=== PATIENT | male | born 1940 | race Caucasian/White ===

== ENCOUNTER 2017-04-11 08:23 | Outpatient (RCR) | payer MEDICARE, BC ==
[2017-02-14 08:32] VITALS: BP 120/58
[2017-02-14] MEDS: LORATADINE 10 MG TAB PO PRN (09:12)
[2017-02-14] MEDS: ACETAMINOPHEN 500 MG TAB PO PRN (09:13)
[2017-02-14] MEDS: LIDOCAINE/SOD BICARB 8.4% SYR ID PRN (11:56)
[~2017-04-11] VITALS: Ht 167.6 cm; Wt 90.5 kg
[~2017-04-11 08:23] MED LIST: AFLI2VIA IO; ALL100 PO; ASPI81TA94 PO; AZA50 PO; AZAT50TA25 PO; CAND8TAB4 PO; CHOL100058 PO; CLOP75TA PO; DABI75CA4 PO; DEXTROSE 5%(*) 100 ML BAG 100 ML IVPB PRN; DIAZ-308 PO; DILT240C4 PO; DILT360C25 PO; DOC100 PO; ESOM40CA42 PO; FEN145 PO; FENO145T PO; FERR236T3 PO; FERR324T16 PO; GABA-549 PO; HYDR-385 PO; HYDR-4309 PO; IBUP-56 PO; INF100I IV; IRON150C19 PO; LOPE2CAP39 PO; LOR5 PO; LOR5/325 PO; LOSA25TA50 PO; MESA1.2T2 PO; MESA400T PO; METO25TA23 PO; NIT100 PO; NITR0.4T3 SL; NS(*) 0.9% 100 ML BAG 100 ML IVPB PRN; OCU PO; OMEG500C5 PO; PANT40TA65 PO; PNEU0.5D3 IM; PRAV40TA78 PO; PRE10 PO; PRE20 PO; TOLT4CAP13 PO; TRAM-420 PO; WAR1 PO; [UNRECOGNIZED DRUG - CODE] IO; diphenhydrAMINE 50 MG/ML VIAL IVP PRN; inFLIXimab 100 MG VIAL 500 MG in NS(*) 0.9% 250 ML BAG 250 ML IVPB ONE
[2017-04-11 08:39] LABS: PLATELET COUNT, AUTOMATED 156 K/uL (150-450)
[2017-04-11] MEDS: LORATADINE 10 MG TAB PO PRN (08:41)
[2017-04-11] MEDS: LIDOCAINE/SOD BICARB 8.4% SYR ID PRN (08:41)
[2017-04-11] MEDS: ACETAMINOPHEN 500 MG TAB PO PRN (08:41)
[2017-04-11 08:49] VITALS: BP 155/83
[2017-04-11] MEDS ORDERED: inFLIXimab 100 MG VIAL 500 MG in NS(*) 0.9% 250 ML BAG 250 ML IVPB ONE (08:50)
[2017-04-28] MEDS ORDERED: FENO145T PO (09:54)
== END 2017-05-14 ==
LOC: SPU 08:23
PROVIDERS: ATTEND Internal Medicine Gastroenterology
DX: K51.90 Ulcerative colitis, unspecified, without complications (principal)
CPT/HCPCS: 85025; 96413; 96415; A9270; J1745; J7050; 82040; 82247; 82310; 82374; 82435; 82565; 82947; 84075; 84132; 84155; 84295; 84450; 84460; 84520

== ENCOUNTER 2017-07-31 08:23 | Outpatient (RCR) | payer MEDICARE, BC ==
[2017-06-05 08:41] VITALS: BP 146/81
[2017-06-05] MEDS: LORATADINE 10 MG TAB PO PRN (09:05)
[2017-06-05] MEDS: ACETAMINOPHEN 500 MG TAB PO PRN (09:05)
[2017-06-05] MEDS: LIDOCAINE/SOD BICARB 8.4% SYR ID PRN (09:05)
[2017-06-05 11:53] VITALS: BP 140/81
[~2017-07-31] VITALS: Ht 167.6 cm; Wt 91.4 kg
[~2017-07-31 08:23] MED LIST changes: -FENO145T PO; +FENO145T36 PO; +inFLIXimab 100 MG VIAL 300 MG in NS(*) 0.9% 250 ML BAG 250 ML IVPB ONE; -inFLIXimab 100 MG VIAL 500 MG in NS(*) 0.9% 250 ML BAG 250 ML IVPB ONE
[2017-07-31 08:42] VITALS: BP 145/88
[2017-07-31] MEDS: ACETAMINOPHEN 500 MG TAB PO PRN (09:07)
[2017-07-31] MEDS: LORATADINE 10 MG TAB PO PRN (09:07)
[2017-07-31] MEDS: LIDOCAINE/SOD BICARB 8.4% SYR ID PRN (09:08)
[2017-07-31 09:11] LABS: PLATELET COUNT, AUTOMATED 177 K/uL (150-450)
[2017-07-31] MEDS ORDERED: inFLIXimab 100 MG VIAL 500 MG in NS(*) 0.9% 250 ML BAG 250 ML IVPB ONE (09:30)
== END 2017-08-31 ==
LOC: SPU 08:23
PROVIDERS: ATTEND Internal Medicine Gastroenterology
DX: K51.90 Ulcerative colitis, unspecified, without complications (principal)
CPT/HCPCS: 85025; 96413; 96415; A9270; J1745; J7050; 82040; 82247; 82310; 82374; 82435; 82565; 82947; 84075; 84132; 84155; 84295; 84450; 84460; 84520

== ENCOUNTER 2017-11-20 08:21 | Outpatient (RCR) | payer MEDICARE, BC ==
[2017-09-25] MEDS: LIDOCAINE/SOD BICARB 8.4% SYR ID PRN (08:46)
[2017-09-25] MEDS: NS(*) 0.9% 100 ML BAG 100 ML IVPB PRN (08:47)
[2017-09-25] MEDS: ACETAMINOPHEN 500 MG TAB PO PRN (08:57)
[2017-09-25] MEDS: LORATADINE 10 MG TAB PO PRN (09:04)
[2017-09-25 09:06] VITALS: BP 145/70
[2017-09-25 12:07] VITALS: BP 154/83
[~2017-11-20 08:21] MED LIST changes: -NS(*) 0.9% 100 ML BAG 100 ML IVPB PRN; -inFLIXimab 100 MG VIAL 300 MG in NS(*) 0.9% 250 ML BAG 250 ML IVPB ONE; +inFLIXimab 100 MG VIAL 500 MG in NS(*) 0.9% 250 ML BAG 250 ML IVPB ONE
[2017-11-20 08:47] LABS: PLATELET COUNT, AUTOMATED 149 K/uL (150-450)
[2017-11-20] MEDS: ACETAMINOPHEN 500 MG TAB PO PRN (08:50)
[2017-11-20] MEDS: NS(*) 0.9% 100 ML BAG 100 ML IVPB PRN (08:51)
[2017-11-20] MEDS: LORATADINE 10 MG TAB PO PRN (08:51)
[2017-11-20] MEDS: LIDOCAINE/SOD BICARB 8.4% SYR ID PRN (08:51)
[2017-11-20 08:54] VITALS: BP 141/75
[2017-11-20] MEDS ORDERED: inFLIXimab 100 MG VIAL 500 MG in NS(*) 0.9% 250 ML BAG 250 ML IVPB ONE (09:30)
[2017-12-05] MEDS ORDERED: DABI75CA4 PO (11:36)
[2017-12-08] MEDS ORDERED: DILT240C4 PO (15:37)
[2017-12-14] MEDS ORDERED: DABI75CA4 PO (09:20)
== END 2017-12-21 ==
LOC: SPU 08:21
PROVIDERS: ATTEND Internal Medicine Gastroenterology
DX: K51.90 Ulcerative colitis, unspecified, without complications (principal)
CPT/HCPCS: 85025; 96413; 96415; A9270; J1745; J7050; 82040; 82247; 82310; 82374; 82435; 82565; 82947; 84075; 84132; 84155; 84295; 84450; 84460; 84520

== ENCOUNTER → 2017-12-15 | Outpatient (CLI) | payer MEDICARE, BC ==
[~2017-12-15] MED LIST changes: -DEXTROSE 5%(*) 100 ML BAG 100 ML IVPB PRN; -diphenhydrAMINE 50 MG/ML VIAL IVP PRN; -inFLIXimab 100 MG VIAL 500 MG in NS(*) 0.9% 250 ML BAG 250 ML IVPB ONE
== END ==
LOC: LAB 07:52
PROVIDERS: ATTEND Internal Medicine
DX: I12.9 Hypertensive chronic kidney disease with stage 1 through stage 4 chronic kidney disease, or unspecified chronic kidney disease (principal); E78.5 Hyperlipidemia, unspecified; N18.3 Chronic kidney disease, stage 3 (moderate); Z86.79 Personal history of other diseases of the circulatory system; C61 Malignant neoplasm of prostate; I48.0 Paroxysmal atrial fibrillation
CPT/HCPCS: 36415; 81001; 82040; 82247; 82306; 82310; 82374; 82435; 82465; 82565; 82947; 83718; 84075; 84132; 84153; 84155; 84295; 84443; 84450; 84460; 84478; 84520

== ENCOUNTER → 2017-12-18 | Outpatient (CLI) | payer MEDICARE, BC ==
[2017-12-18 09:36] LABS: PLATELET COUNT, AUTOMATED 168 K/uL (150-450)
== END ==
LOC: LAB 09:11
PROVIDERS: ATTEND Internal Medicine Gastroenterology
DX: K51.90 Ulcerative colitis, unspecified, without complications (principal)
CPT/HCPCS: 36415; 85025

== ENCOUNTER → 2018-01-09 | Outpatient (CLI) | payer MEDICARE, BC ==
[2018-01-09 07:53] LABS: PLATELET COUNT, AUTOMATED 147 K/uL (150-450)
== END ==
LOC: LAB 07:26
PROVIDERS: ATTEND Internal Medicine Nephrology
DX: N18.4 Chronic kidney disease, stage 4 (severe) (principal); I12.9 Hypertensive chronic kidney disease with stage 1 through stage 4 chronic kidney disease, or unspecified chronic kidney disease; E88.09 Other disorders of plasma-protein metabolism, not elsewhere classified; R60.9 Edema, unspecified
CPT/HCPCS: 36415; 82040; 82306; 82310; 82374; 82435; 82565; 82570; 82947; 83970; 84100; 84132; 84156; 84295; 84520; 85025

== ENCOUNTER → 2018-01-22 | Outpatient (CLI) | payer MEDICARE, BC ==
[~2018-01-22] MED LIST changes: -LOSA25TA50 PO; +LOSA25TA52 PO
== END ==
LOC: LAB 09:33
PROVIDERS: ATTEND Internal Medicine Nephrology
DX: R80.1 Persistent proteinuria, unspecified (principal); N18.3 Chronic kidney disease, stage 3 (moderate); I12.9 Hypertensive chronic kidney disease with stage 1 through stage 4 chronic kidney disease, or unspecified chronic kidney disease
CPT/HCPCS: 82043; 84156

== ENCOUNTER → 2018-01-31 | Outpatient (CLI) | payer MEDICARE, BC | LOC: LAB 09:05 | PROVIDERS: ATTEND Internal Medicine Nephrology | DX: N18.4 Chronic kidney disease, stage 4 (severe) (principal); I12.9 Hypertensive chronic kidney disease with stage 1 through stage 4 chronic kidney disease, or unspecified chronic kidney disease; E88.09 Other disorders of plasma-protein metabolism, not elsewhere classified; R80.9 Proteinuria, unspecified | CPT/HCPCS: 36415; 81001; 83883; 84156; 84165; 86160; 86255; 86335; 87088 ==

== ENCOUNTER → 2018-02-26 | Outpatient (CLI) | payer MEDICARE, BC ==
[~2018-02-26] MED LIST changes: -HYDR-4309 PO; +HYDR-653 PO
--- NOTE | 2018-02-27 07:14 | EKG ---
FAC[place] [facility] [place]IENT NAME: JENNIFER CUTLER : [id number] MR: [id number] V: [id number] EXAM DATE: ORDERING PHYSICIAN: IZABEL SEWELL TECHNOLOGIST: PÉREZ Wiley Reason : CAD Blood Pressure : / mmHG Vent. 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
== END ==
LOC: RESP 14:27
PROVIDERS: ATTEND Internal Medicine
DX: Z02.9 Encounter for administrative examinations, unspecified (principal)

== ENCOUNTER 2018-03-12 08:20 | Outpatient (RCR) | payer MEDICARE, BC ==
[2018-01-15 08:34] VITALS: BP 145/80
[2018-01-15] MEDS: LORATADINE 10 MG TAB PO PRN (09:00)
[2018-01-15] MEDS: ACETAMINOPHEN 500 MG TAB PO PRN (09:00)
[2018-01-15] MEDS: NS(*) 0.9% 100 ML BAG 100 ML IVPB PRN (09:01)
[2018-01-15] MEDS: LIDOCAINE/SOD BICARB 8.4% SYR ID PRN (09:01)
[~2018-03-12 08:20] MED LIST changes: +DEXTROSE 5%(*) 100 ML BAG 100 ML IVPB PRN; +inFLIXimab 100 MG VIAL 500 MG in NS(*) 0.9% 250 ML BAG 250 ML IVPB ONE
[2018-03-12 08:27] VITALS: BP 154/90
[2018-03-12] MEDS: NS(*) 0.9% 100 ML BAG 100 ML IVPB PRN (08:37)
[2018-03-12] MEDS: LIDOCAINE/SOD BICARB 8.4% SYR ID PRN (08:37)
[2018-03-12] MEDS: LORATADINE 10 MG TAB PO PRN (08:40)
[2018-03-12] MEDS: ACETAMINOPHEN 500 MG TAB PO PRN (08:40)
[2018-03-12] MEDS ORDERED: NS 0.9% IV ONE (09:30)
[2018-03-12] MEDS ORDERED: INFLIXIMAB DYYB IV ONE (09:30)
== END 2018-04-12 ==
LOC: SPU 08:20
PROVIDERS: ATTEND Internal Medicine Gastroenterology
DX: K51.90 Ulcerative colitis, unspecified, without complications (principal)
CPT/HCPCS: 96413; 96415; A9270; J1745; J7050; Q5103

== ENCOUNTER 2018-07-04 07:51 | Outpatient (RCR) | payer MEDICARE, BC ==
[2018-05-09 08:30] VITALS: BP 141/91
[2018-05-09 08:59] LABS: PLATELET COUNT, AUTOMATED 133 K/uL (150-450)
[2018-05-09] MEDS: ACETAMINOPHEN 500 MG TAB PO PRN (09:09)
[2018-05-09] MEDS: LORATADINE 10 MG TAB PO PRN (09:09)
[2018-05-09] MEDS: LIDOCAINE/SOD BICARB 8.4% SYR ID PRN (09:10)
[2018-05-09] MEDS: NS(*) 0.9% 100 ML BAG 100 ML IVPB PRN (09:10)
[2018-05-09 12:24] VITALS: BP 130/81
[~2018-07-04 07:51] MED LIST changes: +ALBU8.5H IH; +GUAI120L3 PO; -LOSA25TA52 PO; +LOSA25TA57 PO
[2018-07-04 08:15] VITALS: BP 146/81
[2018-07-04] MEDS: LIDOCAINE/SOD BICARB 8.4% SYR ID PRN (08:24)
[2018-07-04] MEDS: NS(*) 0.9% 100 ML BAG 100 ML IVPB PRN (08:25)
[2018-07-04] MEDS: ACETAMINOPHEN 500 MG TAB PO PRN (08:26)
[2018-07-04] MEDS: LORATADINE 10 MG TAB PO PRN (08:26)
[2018-07-04] MEDS ORDERED: inFLIXimab 100 MG VIAL 500 MG in NS(*) 0.9% 250 ML BAG 250 ML IVPB ONE (09:30)
[2018-07-04 11:21] VITALS: BP 140/76
== END 2018-08-07 ==
LOC: SPU 07:51
PROVIDERS: ATTEND Internal Medicine Gastroenterology
DX: K51.90 Ulcerative colitis, unspecified, without complications (principal)
CPT/HCPCS: 85025; 96365; 96366; 96413; 96415; A9270; J1745; J7050; 82040; 82247; 82310; 82374; 82435; 82565; 82947; 84075; 84132; 84155; 84295; 84450; 84460; 84520

== ENCOUNTER 2018-10-25 07:59 | Outpatient (RCR) | payer MEDICARE, BC ==
[2018-08-29 08:12] VITALS: BP 148/74
[2018-08-29 08:27] LABS: PLATELET COUNT, AUTOMATED 131 K/uL (150-450)
[2018-08-29] MEDS: LIDOCAINE/SOD BICARB 8.4% SYR ID PRN (08:27)
[2018-08-29] MEDS: LORATADINE 10 MG TAB PO PRN (08:27)
[2018-08-29] MEDS: ACETAMINOPHEN 500 MG TAB PO PRN (08:28)
[2018-08-29] MEDS: NS(*) 0.9% 100 ML BAG 100 ML IVPB PRN (08:28)
[2018-08-29 11:12] VITALS: BP 130/74
[~2018-10-25 07:59] MED LIST changes: +HYDR30CR10 TP; +diphenhydrAMINE 50 MG/ML VIAL IVP PRN
[2018-10-25 08:06] VITALS: BP 138/75
[2018-10-25] MEDS: NS(*) 0.9% 100 ML BAG 100 ML IVPB PRN (08:25)
[2018-10-25] MEDS: ACETAMINOPHEN 500 MG TAB PO PRN (08:26)
[2018-10-25] MEDS: LORATADINE 10 MG TAB PO PRN (08:26)
[2018-10-25] MEDS: LIDOCAINE/SOD BICARB 8.4% SYR ID PRN (08:26)
[2018-10-25] MEDS ORDERED: inFLIXimab 100 MG VIAL 500 MG in NS(*) 0.9% 250 ML BAG 250 ML IVPB ONE (09:00)
[2018-10-25 10:52] VITALS: BP 144/70
== END 2018-11-26 ==
LOC: SPU 07:59
PROVIDERS: ATTEND Internal Medicine Gastroenterology
DX: K51.90 Ulcerative colitis, unspecified, without complications (principal)
CPT/HCPCS: 85025; 86480; 96413; 96415; A9270; J1745; J7050; 82040; 82247; 82310; 82374; 82435; 82565; 82947; 84075; 84132; 84155; 84295; 84450; 84460; 84520

== ENCOUNTER → 2018-11-27 | Outpatient (CLI) | payer MEDICARE, BC ==
[~2018-11-27] MED LIST changes: -DEXTROSE 5%(*) 100 ML BAG 100 ML IVPB PRN; -diphenhydrAMINE 50 MG/ML VIAL IVP PRN; -inFLIXimab 100 MG VIAL 500 MG in NS(*) 0.9% 250 ML BAG 250 ML IVPB ONE
== END ==
LOC: LAB 07:50
PROVIDERS: ATTEND Internal Medicine Cardiovascular Disease
DX: I25.10 Atherosclerotic heart disease of native coronary artery without angina pectoris (principal); I48.0 Paroxysmal atrial fibrillation; E78.5 Hyperlipidemia, unspecified
CPT/HCPCS: 36415; 82310; 82374; 82435; 82565; 82947; 84132; 84295; 84520

== ENCOUNTER → 2018-12-05 | Outpatient (CLI) | payer MEDICARE, BC | LOC: RESP 02:00 | PROVIDERS: ATTEND Internal Medicine Cardiovascular Disease | DX: I25.10 Atherosclerotic heart disease of native coronary artery without angina pectoris (principal) | CPT/HCPCS: 93017 ==

== ENCOUNTER → 2018-12-06 | Outpatient (CLI) | payer MEDICARE, BC | LOC: LAB 07:38 | PROVIDERS: ATTEND Internal Medicine Gastroenterology | DX: K51.90 Ulcerative colitis, unspecified, without complications (principal) | CPT/HCPCS: 36415; 86480; 87340 ==